=== PATIENT | male | born 1985 | race Caucasian/White ===

== ENCOUNTER 2019-02-20 20:19 | Emergency (ER) | payer MEDICAID ==
[~2019-02-20] VITALS: Ht 182.9 cm; Wt 77.1 kg
--- NOTE | 2019-02-20 20:55 | NUR ---
PT PRESENTED TO THE ER WITH A C/O SI WITHOUT A PLAN. PT AMBULATED TO THE BATHROOM AND A URINE SAMPLE WAS OBTAINED. PT THEN AMBULATED TO ER 13 WITH A STEADY GAIT. PT WAS TOLD WHAT THE PROCESS WOULD BE AND WAS ASKED TO CHANGE INTO A GOWN. SECURITY WAS CALLED AND PT WAS WANDED. NO WEAPONS NOTED. PT'S BELONGINS WERE REMOVED AND PLACED IN BELONGING BAGS, LABELED AND PLACED IN THE NURSE'S STATION UNDER THE SINK. EMI HOWARD IS AT THE BEDSIDE A SITTER.
[2019-02-20 21:18] LABS: APPEARANCE,URINE Clear (CLEAR); BILIRUBIN,URINE Negative (NEGATIVE); BLOOD, URINE Trace-intact Ery/uL (NEGATIVE); COLOR,URINE Yellow (YELLOW); KETONES,URINE Negative (NEGATIVE); LEUKOCYTE ESTERASE ,URINE Negative (NEGATIVE); NITRITE, URINE Negative (NEGATIVE); PROTEIN,URINE Trace mg/dl (NEGATIVE); UGLUCOSE Negative (NEGATIVE); UROBILINOGEN,URINE 0.2 EU/dL (0.2)
[2019-02-20 21:20] LABS: BASOPHILS # (AUTO) 0.1 /CMM (0.0-0.2); BASOPHILS % (AUTO) 2.3 % (0.0-2.0); EOSINOPHILS % (AUTO) 4.3 % (0.0-6.0); HEMATOCRIT 41 % (39-51); HEMOGLOBIN 13.9 g/dL (13.5-17.5); LYMPHOCYTES # (AUTO) 2.1 /CMM (0.8-4.8); LYMPHOCYTES % (AUTO) 39.9 % (20.0-44.0); MEAN CORPUSCULAR HGB CONC 34 g/dl (31.0-36.0); MEAN CORPUSCULAR VOLUME 97 fL (80-96); MONOCYTES # (AUTO) 0.6 /CMM (0.1-1.30); MONOCYTES % (AUTO) 10.8 % (2.0-12.0); NEUTROPHILS # (AUTO) 2.3 /CMM (1.8-8.9); NEUTROPHILS % (AUTO) 42.7 % (43.0-81.0); PLATELET COUNT (AUTO) 250 /CMM (150-450); RED BLOOD CELL COUNT(AUTO) 4.22 MIL/uL (4.5-6.0); WHITE BLOOD COUNT (AUTO) 5.3 K/uL (4.3-11.0)
--- NOTE | 2019-02-20 21:30 | NUR ---
PT APPEARS TO BE RESTING COMFORTABLY WITH NO S/S OF PAIN OR DISTRESS.
[2019-02-20 21:31] LABS: BACTERIA,URINE Rare /HPF (None Seen); SQUAMOUS EPITHELIAL CELL,UR Few /HPF (None Seen); WBC,URINE NONE SEEN /HPF (0-3)
[2019-02-20 21:32] LABS: ALANINE AMINOTRANSFERASE 35 U/L (12-78); ALBUMIN 3.9 g/dL (3.4-5.0); ALCOHOL, BLOOD 48 mg/dL (0-0); ALKALINE PHOSPHATASE 105 U/L (46-116); ASPARTATE AMINOTRANSFERASE 25 U/L (15-37); BILIRUBIN,DIRECT 0.1 mg/dL (0.0-0.2); BILIRUBIN,TOTAL 0.2 mg/dL (0.2-1.0); CALCIUM, SERUM 8.6 mg/dL (8.5-10.1); CARBON DIOXIDE 28 mmol/L (21-32); CHLORIDE 106 mmol/L (98-107); CREATININE 0.8 mg/dL (0.6-1.3); GLUCOSE 95 mg/dL (74-106); POTASSIUM 4.1 mmol/L (3.5-5.1); SALICYLATE 3.8 mg/dL (2.8-20.0); SODIUM SERUM 143 mmol/L (136-145); TOTAL PROTEIN, SERUM 7.6 g/dL (6.4-8.2); UREA NITROGEN, BLOOD 12 mg/dL (7-18)
[2019-02-20 21:33] LABS: ACETAMINOPHEN < 2 ug/ml (10-30)
--- NOTE | 2019-02-20 22:26 | NUR ---
PER ART, CALL [facility] AT 2300
--- NOTE | 2019-02-20 23:00 | NUR ---
PT REC'D WATER AND IS TOLERATING PO WELL.
--- NOTE | 2019-02-20 23:05 | NUR ---
[facility] ETA 1 HR
--- NOTE | 2019-02-20 23:53 | NUR ---
MALORIE AMAYA, ARRIVED AND IS REVIEWING THE PT'S CHART.
--- NOTE | 2019-02-21 00:09 | NUR ---
KP AMAYAW IS AT THE BEDSIDE EVALUATING THE PT.
--- NOTE | 2019-02-21 00:10 | NUR ---
STEVE, EMT, IS AT THE BEDSIDE A SITTER.
--- NOTE | 2019-02-21 00:40 | NUR ---
EMI HOWARD, IS AT THE BEDSIDE. PT WAS HUNGRY AND REC'D A SANDWICH, JUICE, JELLO, AND PUDDING.
--- NOTE | 2019-02-21 01:19 | NUR ---
PER MALORIE AMAYA, PT TO GO TO [facility]. [facility] WILL NOT CALL WITH TRANSFER INFO UNTIL AFTER 0730 IN THE MORNING.
--- NOTE | 2019-02-21 02:30 | NUR ---
PT APPEARS TO BE RESTING COMFORTABLY WITH NO S/S OF PAIN OR DISTRESS. ANITAEMI/MICHELLE IS AT THE BEDSIDE.
--- NOTE | 2019-02-21 02:59 | NUR ---
REPORT GIVEN TO LALI FARMER FOR JO-ANN.
--- NOTE | 2019-02-21 06:28 | NUR ---
PT IN BED SLEEPING. AROUSES EASILY. BREATHING EVENLY. ON SI PRECAUTION AND CLOSE SUPERVISION. 1:1 SITTER. VSS. WILL CONT TO MONITOR
--- NOTE | 2019-02-21 08:21 | NUR ---
Called Ivelisse from [facility] intake [phone]. She is unable to accept the patient at [facility] and has presented the case to [facility] for possible admission. She will call back with updates
--- NOTE | 2019-02-21 10:31 | NUR ---
REPORT GIVEN TO TATUM ESCALERA,[phone] X [phone], [facility] CALLED
--- NOTE | 2019-02-21 10:35 | NUR ---
CALLED TRANSPORT ETA IS 1200 TRIP NUMBER IS [id number] MOY
--- NOTE | 2019-02-21 12:15 | NUR ---
CALLED [facility] IN [place] [phone] X [phone] INFORMED THAT THE PT IS BEING TRANSPORTED.
--- NOTE | 2019-02-21 12:37 | NUR ---
PT TRANSPORTED TO [facility]IA [facility]UL[facility], REPORT GIVEN TO STAFF, PT LEFT IN STABLE CONDITION, ALL BELOGINGS WITH PATIENT, PT LEFT VIA GURNEY WITH 2 GRANITE CUTTER.
[2019-02-21 12:38] VITALS: BP 121/69
== END 2019-02-21 12:39 ==
LOC: ER 20:19
DX: R45.851 Suicidal ideations (principal); F32.9 Major depressive disorder, single episode, unspecified; F41.9 Anxiety disorder, unspecified; F29 Unspecified psychosis not due to a substance or known physiological condition; F20.0 Paranoid schizophrenia; F10.10 Alcohol abuse, uncomplicated; F17.200 Nicotine dependence, unspecified, uncomplicated; Y90.2 Blood alcohol level of 40-59 mg/100 ml; Z91.5 Personal history of self-harm
CPT/HCPCS: 36415; 80048-TC; 80076-TC; 80305; 81000-TC; 85025-TC; G0480